=== PATIENT | female | born 1970 | race Caucasian/White ===

== ENCOUNTER 2021-09-23 07:22 | Inpatient (IN) | payer OTHER, MEDICAID ==
[~2021-09-23] VITALS: Ht 154.9 cm; Wt 45.4 kg
[~2021-09-23 07:22] MED LIST: AMOXICILLIN875 MG PO; BENADRYL25 MG PO; CEPHALEXIN 500500 M2 PO; CHERATUSSIN DA480 ML PO; HYDROCODON-ACE1 EAC7 PO; KEFLEX500 MG PO; NOHOMEMEDICATIONS; PREDNISONE 20 M20 M1 PO; TOBREX5 ML OP; ZPAK PO
[2021-09-23 07:41] VITALS: BP 138/86
[2021-09-23] MEDS ORDERED: DICYCLOMINE HCL20 MG PO (07:47)
[2021-09-23] MEDS ORDERED: CEPHALEXIN500 MG PO (07:47)
[2021-09-23] MEDS ORDERED: ONDANSETRON ODT4 MG PO (07:47)
[2021-09-23] MEDS ORDERED: FAMOTIDINE 20 M20 MG PO (07:47)
[2021-09-23 08:03] LABS: HEMATOCRIT 43.1 % (37.0-47.0); HEMOGLOBIN 14.4 gm/dL (12.0-15.0); MCH 31.4 pg (26.0-34.0); MCHC 33.5 g/dL (28.0-37.0); MCV 93.5 fL (80.0-100.0); MPV 7.2 fl. (7.2-11.1); NUCLEATED RBCS 0 /100WBC; PLATELET COUNT* 302 thou/uL (150-400); RBC 4.61 mil/uL (4.20-5.00); RDW-CV 13.8 % (10.5-14.5); WBC 10.4 thou/uL (4.0-11.0)
[2021-09-23 08:54] LABS: ALBUMIN 3.5 g/dL (3.4-5.0); CALCIUM 8.3 mg/dL (8.5-10.1); CREATININE 0.8 mg/dL (0.6-1.3); POTASSIUM 3.7 mmol/L (3.5-5.1); TOTAL BILIRUBIN 0.4 mg/dL (<0.1-1.0); TOTAL PROTEIN 6.7 g/dL (6.4-8.2)
[2021-09-23 10:36] LABS: ABSOLUTE LYMPHOCYTES 0.9 thou/uL (0.8-5.3); ABSOLUTE MONOCYTES 0.2 thou/uL (0.0-1.2); ABSOLUTE NEUTROPHILS 9.3 thou/uL (1.6-8.1); PLATELET ESTIMATE ADEQUATE
--- NOTE | 2021-09-23 11:12 | EKG ---
[place] [address] ELECTROCARDIOGRAM REPORT Name: DEREK GLEZ Room: [place] [address] ADM IN [facility]#: [id number] Admission: 09/23/21 Attend Phys: Yobani Dowell Discharge: Date of : 70 Date of Service: 09/23/21 0759 Report #: [id number] THIS REPORT FOR: //name// [facility] ED Test Date: 2021-09-23 Test Time: 07:59:03 Pat Name: DEREK GLEZ Department: Room: 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
[2021-09-23 14:30] VITALS: BP 125/83
[2021-09-23 16:01] LABS: URINE BILIRUBIN NEGATIVE (Negative); URINE BLOOD NEGATIVE (Negative); URINE COLOR YELLOW; URINE GLUCOSE-RANDOM NEGATIVE (Negative); URINE KETONES NEGATIVE (Negative); URINE LEUKOCYTES-REFLEX NEGATIVE (Negative); URINE NITRITE-REFLEX NEGATIVE (Negative); URINE PROTEIN NEGATIVE (Negative); URINE UROBILINOGEN 0.2 E.U./dl (0.2-1.0)
[2021-09-23 16:03] LABS: URINE CLARITY CLEAR
[2021-09-23 17:11] VITALS: BP 125/83
[2021-09-23 18:24] VITALS: BP 116/73
[2021-09-23 20:00] VITALS: BP 137/74
[2021-09-24 00:37] VITALS: BP 141/74
[2021-09-24 05:10] LABS: ABSOLUTE LYMPHOCYTES 0.6 thou/uL (0.8-5.3); ABSOLUTE MONOCYTES 0.5 thou/uL (0.0-1.2); ABSOLUTE NEUTROPHILS 4.1 thou/uL (1.6-8.1); BASOPHILS 0.5 %; EOSINOPHILS 0.2 %; HEMATOCRIT 43.2 % (37.0-47.0); HEMOGLOBIN 14.6 gm/dL (12.0-15.0); LYMPHOCYTES 10.9 %; MCH 31.9 pg (26.0-34.0); MCHC 33.9 g/dL (28.0-37.0); MONOCYTES 9.9 %; NUCLEATED RBCS 0 /100WBC; PLATELET COUNT* 233 thou/uL (150-400); POLYS 78.5 %; RBC 4.59 mil/uL (4.20-5.00); RDW-CV 14.3 % (10.5-14.5); WBC 5.2 thou/uL (4.0-11.0)
[2021-09-24 05:17] LABS: CALCIUM 8.2 mg/dL (8.5-10.1); CREATININE 0.7 mg/dL (0.6-1.3); POTASSIUM 4.1 mmol/L (3.5-5.1)
[2021-09-24 07:10] LABS: PHOSPHORUS* 3.4 mg/dL (2.5-4.9)
[2021-09-24 08:30] VITALS: BP 112/71
[2021-09-24 16:00] VITALS: BP 130/81
[2021-09-24 20:00] VITALS: BP 145/77
[2021-09-25 00:13] VITALS: BP 134/81
[2021-09-25 08:00] VITALS: BP 12/80
[2021-09-25 10:01] LABS: HEMATOCRIT 38.3 % (37.0-47.0); MCHC 33.9 g/dL (28.0-37.0); MCV 94.2 fL (80.0-100.0); MPV 6.9 fl. (7.2-11.1); RBC 4.07 mil/uL (4.20-5.00); RDW-CV 13.9 % (10.5-14.5); WBC 5.2 thou/uL (4.0-11.0)
[2021-09-25 10:27] LABS: ALBUMIN 3.3 g/dL (3.4-5.0); CALCIUM 8.5 mg/dL (8.5-10.1); CREATININE 0.8 mg/dL (0.6-1.3); MAGNESIUM 2.1 mg/dL (1.8-2.4); POTASSIUM 3.7 mmol/L (3.5-5.1); TOTAL BILIRUBIN 0.3 mg/dL (<0.1-1.0); TOTAL PROTEIN 6.7 g/dL (6.4-8.2)
[2021-09-25 16:00] VITALS: BP 125/60
[2021-09-25 20:26] VITALS: BP 112/61
[2021-09-26 01:19] VITALS: BP 118/66
[2021-09-26 01:23] LABS: URINE BILIRUBIN NEGATIVE (Negative); URINE BLOOD NEGATIVE (Negative); URINE CLARITY CLEAR; URINE COLOR YELLOW; URINE GLUCOSE-RANDOM NEGATIVE (Negative); URINE KETONES NEGATIVE (Negative); URINE LEUKOCYTES-REFLEX TRACE (Negative); URINE NITRITE-REFLEX NEGATIVE (Negative); URINE PROTEIN NEGATIVE (Negative); URINE SPECIFIC GRAVITY 1.015 (1.005-1.030); URINE UROBILINOGEN 0.2 E.U./dl (0.2-1.0)
[2021-09-26 04:46] LABS: CASTS None Seen /LPF (None Seen); SQUAMOUS 4-10 Moderate /LPF (0-3)
[2021-09-26 04:47] LABS: BACTERIA-REFLEX 1-9 Few /HPF (None Seen); CRYSTALS None Seen /LPF (None Seen); URINE RBC None Seen /HPF (0-2); URINE WBC-REFLEX 6-15 Few /HPF (0-5)
[2021-09-26 04:59] LABS: HEMATOCRIT 35.5 % (37.0-47.0); HEMOGLOBIN 12.1 gm/dL (12.0-15.0); MCH 31.9 pg (26.0-34.0); MCV 93.9 fL (80.0-100.0); MPV 7.2 fl. (7.2-11.1); RBC 3.78 mil/uL (4.20-5.00); RDW-CV 14.1 % (10.5-14.5); WBC 4.3 thou/uL (4.0-11.0)
[2021-09-26 05:26] LABS: CALCIUM 8.2 mg/dL (8.5-10.1); CREATININE 0.5 mg/dL (0.6-1.3); POTASSIUM 3.3 mmol/L (3.5-5.1)
[2021-09-26 07:45] VITALS: BP 114/66
[2021-09-26 16:00] VITALS: BP 124/63
== END 2021-09-26 17:15 | disposition home or self-care (01) | DRG 389 ==
LOC: M.ERS 07:22 → M.TBA-ER 10:29 → M.2W 17:14
PROVIDERS: Emergency Medicine; Internal Medicine; Student in an Organized Health Care Education/Training Program; Surgery; ADMIT Internal Medicine; ATTEND Internal Medicine
PROC: 0DH67UZ Insertion of Feeding Device into Stomach, Via Natural or Artificial Opening (ICD-10-PCS; principal; 2021-09-23)
DX: K56.609 Unspecified intestinal obstruction, unspecified as to partial versus complete obstruction (principal); N39.0 Urinary tract infection, site not specified; F12.90 Cannabis use, unspecified, uncomplicated; Z20.822 Contact with and (suspected) exposure to COVID-19; Z88.2 Allergy status to sulfonamides